=== PATIENT | male | born 1955 | race Hispanic/Latino ===

== ENCOUNTER 2023-12-07 08:10 | Day surgery (SDC) | payer MEDICARE, OTHER ==
[2023-12-05 12:53] VITALS: BP 111/69; PULSE 54; RESP 18; TEMP 97.3; O2SAT 96
[2023-12-05 13:30] LABS: BASOPHIL % 0.1 % (0.0-0.2); EOSINOPHIL # 0.1 10^3/uL (0.0-0.2); EOSINOPHIL % 1.5 % (0.0-5.0); HEMATOCRIT(ML) 47.9 % (37.0-53.0); HEMOGLOBIN 15.8 g/dL (13.9-16.3); LYMPHOCYTES # 2.23 10^3/uL1 (1.0-4.8); LYMPHOCYTES % 30.5 % (24.0-44.0); MEAN CORP HGB 31.3 pg (26-34); MEAN CORP VOLUME 94.9 fL (78-100); MONOCYTES # 0.7 10^3/uL (0.3-0.8); MONOCYTES % 9.6 % (5.0-12.0); NEUTROPHIL # 4.3 10^3/uL (1.8-7.7); NEUTROPHILS % 58.2 % (41.0-85.0); PLATELET COUNT 227 10^3/uL (150-400); RED BLOOD CELL 5.05 10^6/uL (4.50-5.90); RED CELL DISTRIBUTION WIDTH 12.8 % (11.5-14.5); WHITE BLOOD CELL 7.3 10^3/uL (4.5-11.0)
[2023-12-05 13:33] LABS: +ADD MANUAL DIFF(NO CHRG) NO
[2023-12-05 13:45] LABS: ALBUMIN(ML) 3.8 g/dL (3.4-5.0); ALBUMIN/GLOBULIN RATIO 1.187; ANION GAP 13.2; BUN/CREATININE RATIO 20.68 (10.0-20.0); CALCIUM 8.9 mg/dL (8.4-10.5); CARBON DIOXIDE 26.4 mmol/L (20.0-32); CREATININE SERUM 0.87 mg/dL (0.59-1.40); EST GFR, NON-AA 87.8 (>/=60); POTASSIUM 4.6 mmol/L (3.6-5.2)
[~2023-12-07] VITALS: Ht 182.9 cm; Wt 91.7 kg
[2023-12-07 08:10] VITALS: BP 138/75; PULSE 52; RESP 16; TEMP 97; O2SAT 97
[~2023-12-07 08:10] MED LIST: ANCEF ONE; ATOR10TA PO; CYAN10002 IM; DONE5TAB7 PO; FINA5TAB4 PO; LACTATED RINGERS 1,000 ML ONE; LANS30CA PO; LIDOCAINE 1% VIAL ONE; LOSA100T15 PO; NS 100ML 100 ML IV ONE; SODIUM CHLORIDE IRR BOTTLE IR ONE; TAMS-14 PO; WATER ONE; XYLOCAINE 1%-EPI 1:100,000 ONE
[2023-12-07] MEDS: LACTATED RINGERS 1,000 ML IV SCH (08:20)
[2023-12-07] MEDS ORDERED: XYLOCAINE 2% 5ML VIAL ONE (11:25)
[2023-12-07] MEDS ORDERED: DIPRIVAN IV ONE (11:25)
[2023-12-07] MEDS: ANCEF IV ONE (11:31)
[2023-12-07 11:47] VITALS: TEMP 97.7
[2023-12-07 12:05] VITALS: BP 147/58; PULSE 50; RESP 16; TEMP 97.2
[2023-12-07 12:20] VITALS: BP 126/74; PULSE 50; RESP 16; O2SAT 97
[2023-12-07 12:35] VITALS: BP 135/58; PULSE 49; RESP 16; O2SAT 97
== END 2023-12-07 13:07 | disposition home or self-care (01) ==
LOC: SDC 08:10
PROVIDERS: ATTEND Orthopaedic Surgery
DX: T84.84XA Pain due to internal orthopedic prosthetic devices, implants and grafts, initial encounter (principal); E78.5 Hyperlipidemia, unspecified; I10 Essential (primary) hypertension; K21.9 Gastro-esophageal reflux disease without esophagitis; Z87.891 Personal history of nicotine dependence; Y83.8 Other surgical procedures as the cause of abnormal reaction of the patient, or of later complication, without mention of misadventure at the time of the procedure; Y92.89 Other specified places as the place of occurrence of the external cause
CPT/HCPCS: 80053; 85025; 36415; 93005; 20680; J7120; A4217 ×2; A4649; J2001 ×2; J2704; 76000